=== PATIENT | female | born 1990 | race Caucasian/White ===

== ENCOUNTER → 2019-10-23 | Outpatient (CLI) | payer OTHER ==
[~2019-10-23] MED LIST: ANAPROX DS550 MG PO; ATIVAN0.5 MG PO; BIAXIN500 MG PO; CILOXAN 5 ML5 M1 OT; CIPRODEX 0.3%-7.5 ML OT; CIPROFLOXACIN500 MG PO; CLARITIN10 MG PO; MELATONIN5 M1 PO; MOTRIN800 MG PO; MULTI VITAMINS1 TAB PO; NAPROSYN500 MG PO; NKHM; OMNICEF300 MG PO; ORTHO TRI-CYCLE1 TA1 PO; PEPCID20 MG PO; ULTRAM50 MG PO; VIBRAMYCIN100 MG PO; VICODIN 5/500 505 MG PO; ZANTAC150 MG PO
[2019-10-23 11:13] LABS: ALBUMIN 3.4 gm/dl (3.1-4.5); BUN 10 mg/dl (7-24); CHLORIDE 108 mmol/L (98-107); CREATININE 0.68 mg/dL (0.55-1.02); IRON 60 ug/dL (50-170); POTASSIUM 3.7 mmol/L (3.5-5.1); SODIUM 141 mmol/L (136-145); TOTAL IRON BINDING CAPACITY 347 ug/dl (250-450)
[2019-10-23 11:20] LABS: VITAMIN D, 25-HYDROXY 34.2 ng/mL (30-100)
[2019-10-23 11:21] LABS: FREE T4 0.87 ng/dl (0.76-1.46)
== END | disposition home or self-care (01) ==
LOC: LAB 10:05
PROVIDERS: Internal Medicine
DX: L68.0 Hirsutism (principal); E66.3 Overweight; E55.9 Vitamin D deficiency, unspecified; R53.83 Other fatigue

== ENCOUNTER 2023-12-08 12:18 | Emergency (ER) | payer OTHER ==
[~2023-12-08] VITALS: Ht 170.1 cm; Wt 94.3 kg
[2023-12-08] MEDS ORDERED: ACETAMINOPHEN 325 MG TAB PO ONE (12:40)
[2023-12-08] MEDS ORDERED: SODIUM CHLORIDE 0.9% 1,000 ML IV ONE (12:40)
[2023-12-08 12:59] LABS: BASO % 0.1 % (0.0-1.0); EOS % 0.3 % (1.0-4.0); HEMATOCRIT 35.1 % (37.0-47.0); LYMPH # 1.5 10*3/uL (1.3-4.4); MEAN CELL VOLUME 81.1 fl (81.0-99.0); MEAN CORPUSCULAR HGB 25.2 pg (27.0-31.0); MEAN CORPUSCULAR HGB CONC 31.1 g/dl (33.0-37.0); MEAN PLATELET VOLUME 9.9 fl (9.6-12.3); MONO # 0.5 10*3/uL (0.1-1.0); MONO % 5.3 % (3.0-9.0); NEUT # 7.1 10*3/uL (2.3-7.9); NEUT % 77.9 % (47.0-73.0); PLATELET COUNT AUTOMATED 238 10*3/uL (130-400); RED BLOOD COUNT 4.33 10*6/uL (4.10-5.10); RED CELL DISTRI WIDTH 14.3 % (0-14.5); WHITE BLOOD COUNT 9.2 10*3/uL (4.8-10.8)
[2023-12-08] MEDS ORDERED: PRENATAL VITAM1 EAC4 PO (13:19)
[2023-12-08 13:31] LABS: ALKALINE PHOSPHATASE 91 U/L (46-116); BUN 8 mg/dl (9-23); CHLORIDE 106 mmol/L (98-107); LIPASE 26 U/L (12-53); POTASSIUM 3.8 mmol/L (3.4-5.1); SGPT/ALT 24 U/L (5-49); TOTAL PROTEIN 6.8 gm/dL (6.0-8.0)
== END 2023-12-08 21:31 | disposition short-term general hospital (02) ==
LOC: ED 12:18
PROVIDERS: Internal Medicine
DX: O26.893 Other specified pregnancy related conditions, third trimester (principal); R10.30 Lower abdominal pain, unspecified; R10.2 Pelvic and perineal pain; Z88.1 Allergy status to other antibiotic agents; Z79.899 Other long term (current) drug therapy; Z96.22 Myringotomy tube(s) status; Z3A.32 32 weeks gestation of pregnancy